=== PATIENT | female | born 1950 | race Two or more races ===

== ENCOUNTER → 2021-03-13 | Emergency (ER) | payer OTHER ==
[~2021-03-13] VITALS: Ht 157.5 cm; Wt 60.8 kg
[~2021-03-13] MED LIST: CALTRATE 600 W-1 TAB; FORTAMET500 MG PO
== END | disposition home or self-care (01) ==
LOC: ER 19:23
DX: S01.511A Laceration without foreign body of lip, initial encounter (principal); W18.39XA Other fall on same level, initial encounter; Y93.89 Activity, other specified; Y92.480 Sidewalk as the place of occurrence of the external cause

== ENCOUNTER 2021-03-19 16:54 | Emergency (ER) | payer OTHER ==
[~2021-03-19] VITALS: Ht 157.5 cm; Wt 60.8 kg
== END 2021-03-19 17:24 | disposition home or self-care (01) ==
LOC: ER 16:54
DX: Z48.02 Encounter for removal of sutures (principal)